=== PATIENT | male | born 1950 ===

== ENCOUNTER 2019-03-10 09:31 | Emergency (ER) | payer MEDICARE, OTHER ==
[~2019-03-10] VITALS: Ht 165.1 cm; Wt 62.1 kg
[2019-03-10 09:54] LABS: HEMATOCRIT 50 % (40-54); HEMOGLOBIN 16.4 G/DL (13.3-17.7); MEAN CORPUSCULAR HEMOGLOBIN 29 PG (25-34); WHITE BLOOD COUNT 6.6 10^3/uL (4.3-11.0)
[2019-03-10 09:55] LABS: BASOPHILS % (AUTO) 1 % (0-10); EOSINOPHILS # (AUTO) 0.1 10^3/uL (0.0-0.3); EOSINOPHILS % (AUTO) 2 % (0-10); LYMPHOCYTES # (AUTO) 1.8 X 10^3 (1.0-4.0); LYMPHOCYTES % (AUTO) 27 % (12-44); MEAN CORPUSCULAR HGB CONC 33 G/DL (32-36); MEAN CORPUSCULAR VOLUME 88 FL (80-99); MEAN PLATELET VOLUME 9.4 FL (7.4-10.4); MONOCYTES # (AUTO) 0.3 X 10^3 (0.0-1.0); MONOCYTES % (AUTO) 9 % (0-12); NEUTROPHILS % (AUTO) 61 % (42-75); PLATELET COUNT 342 10^3/uL (130-400); RED CELL DISTRIBUTION WIDTH 13.3 % (10.0-14.5)
[2019-03-10] MEDS: ASPIRIN 81 MG CHEW (CHILDREN'S ASA) PO ONE (09:58)
--- NOTE | 2019-03-10 10:01 | ED Chest Pain ---
General Chief Complaint: Chest Pain Stated Complaint: CHEST PAIN Source: patient Exam Limitations: no limitations History of Present Illness Date Seen by Provider: Mar 10, 2019 Time Seen by Provider: 09:40 Initial Comments The patient is a very pleasant 68-year-old male who presents for evaluation of chest pain and shortness of breath over the last 3-4 days. He states that it is bothering him intermittently. On Thursday he went to his doctor's office for some shortness of breath and had an EKG performed which showed a slightly irregular heartbeat but nothing else unusual. Reportedly takes medication for hyperlipidemia but denies any other significant past medical history. Currently he is having mild left-sided chest discomfort. It is not associated with movement or deep breaths. He denies nausea or vomiting, diaphoresis, abdominal or back pain, or syncope. He does report some palpitations over the last 4 or 5 days. 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 NTG SL FOOD PRODUCTION MACHINE OPERATOR: No Allergies and Home Medications Allergies Coded Allergies: No Known Drug Allergies (Unverified , 12/08/14) Patient Home Medication List Home Medication List Reviewed: Yes Review of Systems Review of Systems Constitutional: dizziness EENTM: No Symptoms Reported Respiratory: Shortness of Air Cardiovascular: Chest Pain, Palpitations Gastrointestinal: No Symptoms Reported Genitourinary: No Symptoms Reported Musculoskeletal: no symptoms reported Skin: no symptoms reported Psychiatric/Neurological: No Symptoms Reported Endocrine: No Symptoms Reported Hematologic/Lymphatic: No Symptoms Reported All Other Systems Reviewed Negative Unless Noted: Yes Past Lhkjxqu-Oxjssu-Yczcka Hx Past Med/Social Hx: Reviewed Nursing Past Med/Soc Hx Physical Exam Vital Signs Vital Signs - First Documented 03/10/19 09:50 Temp 97.8 Pulse 97 Resp 15 B/P (MAP) 135/105 (115) Pulse Ox 99 Capillary Refill : Height, Weight, BMI Height: 5'5.00" Weight: 145lbs. oz. 65.738292tq; BMI Method: General Appearance: No Apparent Distress, WD/WN HEENT: PERRL/EOMI, Pharynx Normal Neck: Full Range of Motion, Normal Inspection Respiratory: Chest Non Tender, Lungs Clear, Normal Breath Sounds, No Accessory Muscle Use, No Respiratory Distress Cardiovascular: Regular Rate, Rhythm, No Edema, Normal Peripheral Pulses Gastrointestinal: Normal Bowel Sounds, Non Tender, Soft Extremity: Normal Capillary Refill, Normal Inspection, Non Tender Neurologic/Psychiatric: Alert, Oriented x3, No Motor/Sensory Deficits, Normal Mood/Affect, kitchen manager II-XII Norm as Tested Skin: Normal Color, Warm/Dry Progress/Results/Core Measures Results/Orders Lab Results Laboratory Tests Test 03/10/19 09:41 03/10/19 13:00 Range/Units White Blood Count 6.6 4.3-11.0 10^3/uL Red Blood Count 5.66 4.35-5.85 10^6/uL Hemoglobin 16.4 13.3-17.7 G/DL Hematocrit 50 40-54 % Mean Corpuscular Volume 88 80-99 FL Mean Corpuscular Hemoglobin 29 25-34 PG Mean Corpuscular Hemoglobin Concent 33 32-36 G/DL Red Cell Distribution Width 13.3 10.0-14.5 % Platelet Count 342 130-400 10^3/uL Mean Platelet Volume 9.4 7.4-10.4 FL Neutrophils (%) (Auto) 61 42-75 % Lymphocytes (%) (Auto) 27 12-44 % Monocytes (%) (Auto) 9 0-12 % Eosinophils (%) (Auto) 2 0-10 % Basophils (%) (Auto) 1 0-10 % Neutrophils # (Auto) 4.0 1.8-7.8 X 10^3 Lymphocytes # (Auto) 1.8 1.0-4.0 X 10^3 Monocytes # (Auto) 0.3 0.0-1.0 X 10^3 Eosinophils # (Auto) 0.1 0.0-0.3 10^3/uL Basophils # (Auto) 0.0 0.0-0.1 10^3/uL D-Dimer 0.28 0.00-0.49 UG/ML Sodium Level 143 135-145 MMOL/L Potassium Level 3.9 3.6-5.0 MMOL/L Chloride Level 103 98-107 MMOL/L Carbon Dioxide Level 26 21-32 MMOL/L Anion Gap 14 5-14 MMOL/L Blood Urea Nitrogen 25 H 7-18 MG/DL Creatinine 1.20 0.60-1.30 MG/DL Estimat Glomerular Filtration Rate > 60 BUN/Creatinine Ratio 21 Glucose Level 89 70-105 MG/DL Calcium Level 9.9 8.5-10.1 MG/DL Corrected Calcium 8.5-10.1 MG/DL Magnesium Level 2.3 1.6-2.4 MG/DL Total Bilirubin 0.6 0.1-1.0 MG/DL Aspartate Amino Transf (AST/SGOT) 24 5-34 U/L Alanine Aminotransferase (ALT/SGPT) 25 0-55 U/L Alkaline Phosphatase 92 40-136 U/L Troponin I < 0.30 < 0.30 <0.30 NG/ML Pro-B-Type Natriuretic Peptide 129.8 H <75.0 PG/ML Total Protein 8.2 6.4-8.2 GM/DL Albumin 5.0 H 3.2-4.5 GM/DL My Orders Orders - FRANK MCKEON DO Cbc With Automated Diff (03/10/19 09:37) Magnesium (03/10/19 09:37) Chest 1 View Ap/Pa Only (03/10/19 09:37) Ekg Tracing (03/10/19 09:37) Comprehensive Metabolic Panel (03/10/19 09:37) O2 (03/10/19 09:37) Monitor-Rhythm Ecg Trace Only (03/10/19 09:37) Ed Iv/Invasive Line Start (03/10/19 09:37) Creatine Kinase Mb (03/10/19 09:37) Troponin I (03/10/19 09:37) Probnp Fs (03/10/19 09:37) Aspirin Chewable Tablet (Baby Aspirin Ch (03/10/19 09:45) Fibrin Degradation Products (03/10/19 09:45) Troponin I (03/10/19 12:30) Medications Given in ED Current Medications Medications Dose Ordered Sig/Dayna Route Start Time Stop Time Status Last Admin Dose Admin Aspirin 324 mg ONCE ONCE PO 03/10/19 09:45 03/10/19 09:48 DC 03/10/19 09:58 324 MG Vital Signs/I&O 03/10/19 09:50 Temp 97.8 Pulse 97 Resp 15 B/P (MAP) 135/105 (115) Pulse Ox 99 Progress Progress Note : Progress Note @1355 - patient updated on lab and imaging results. He has no additional complaints, states"I feel great". The patient has an occasionally irregular rhythm but I see P waves and do not see any sign of atrial fibrillation. Strongly advised the patient to follow up with his PCP and recommended a stress test. The patient expresses understanding and agreement and is stable for discharge. Workup today fails to reveal any emergent pathology. EKG : Comment Sinus tachycardia, rate of 102, normal axis, no acute ischemic findings noted, no STEMI, reviewed and interpreted by myself Diagnostic Imaging Comments [facility], [place] NAME: KANDI BRYAN [facility] REC#: [id number] PT STATUS: REG ER : 1950 PHYSICIAN: FRANK MCKEON DO ADMIT DATE: 03/10/19/ER FS Draft Date of Exam:03/10/19 CHEST 1 VIEW AP/PA ONLY INDICATION: Pain. COMPARISON: None available. TECHNIQUE: Single frontal radiograph of the chest dated 03/10/2019. FINDINGS: The cardiac silhouette and pulmonary vasculature are within normal limits. The lungs are clear without pleural effusion. No pneumothorax. No acute osseous abnormality. IMPRESSION: No acute cardiopulmonary abnormality. Dictated on workstation # [id number] Dict: 03/10/19 0959 Trans: 03/10/19 1003 [id number] Interpreted by: NEGRITA CALDERON MD Electronically signed by: Departure Impression Primary Impression: Chest pain Disposition: 01 HOME, SELF-CARE Condition: Stable Departure-Patient Inst. Decision time for Depature: 13:56 Referrals: SHANTEL DIAZ MD (PCP/Family) Primary Care Physician Patient Instructions: Chest Pain That Is Not Caused by the Heart (DC), Chest P ain Add. Discharge Instructions: Follow-up with your doctor in the next 1-2 days. It is advisable to have a stress test in the very near future. Return to the emergency department immediately for new or worsening symptoms. FRANK MCKEON DO Mar 10, 2019 10:01
[2019-03-10 10:24] LABS: ALANINE AMINOTRANSFERASE 25 U/L (0-55); ALKALINE PHOSPHATASE 92 U/L (40-136); BILIRUBIN,TOTAL 0.6 MG/DL (0.1-1.0); BUN/CREATININE RATIO 21; CALCIUM 9.9 MG/DL (8.5-10.1); CARBON DIOXIDE 26 MMOL/L (21-32); CHLORIDE 103 MMOL/L (98-107); GFR ESTIMATED > 60; GLUCOSE 89 MG/DL (70-105); MAGNESIUM 2.3 MG/DL (1.6-2.4); POTASSIUM 3.9 MMOL/L (3.6-5.0); SODIUM 143 MMOL/L (135-145)
[2019-03-10 10:25] LABS: TOTAL PROTEIN 8.2 GM/DL (6.4-8.2)
[2019-03-10 14:08] VITALS: BP 132/100
[2019-03-10 14:58] LABS: CREATINE KINASE MB 0.8 NG/ML (<6.6)
== END 2019-03-10 14:10 | disposition home or self-care (01) ==
LOC: EDUNIT# 09:31 → ER FS 09:35
DX: R07.9 Chest pain, unspecified (principal); E78.5 Hyperlipidemia, unspecified
CPT/HCPCS: 36415; 71045; 80053; 82553; 83735; 83880; 84484; 85025; 85379; 93005; 93041

== ENCOUNTER → 2021-01-07 | Outpatient (CLI) | payer MEDICARE ==
[~2021-01-07] MED LIST: CATHETER FLUSH 10 ML SYR IV PRN; HOLD METFORMIN - RECEIVED CONTRAST 20 ML VIAL IV SCH; IOHEXOL 350 MG/ML 100 ML (OMNIPAQUE 350) VIAL IV ONE; NS 100 ML (IVPB) BAG IV ONE
[2021-01-07 08:08] LABS: BUN/CREATININE RATIO 15; CREATININE SERUM 1.15 MG/DL (0.60-1.30); GFR ESTIMATED > 60
--- NOTE | 2021-01-07 08:57 | Diagnostic Imaging Report ---
PROCEDURE: CT head with and without contrast. TECHNIQUE: Multiple contiguous axial images were obtained through the brain before and after the administration of intravenous contrast. Auto Exposure Controls were utilized during the CT exam to meet ALARA standards for radiation dose reduction. INDICATION: Periauricular cyst. COMPARISON: None. FINDINGS: The ventricles and cortical sulci are normal in size and contour. Post contrast images show no abnormal enhancement There is no midline shift or mass-effect. No acute intra-axial hemorrhage is seen. There are no abnormal areas of increased or decreased density to suggest acute hemorrhage or edema. No extra-axial masses or collections are present. The bony calvarium is intact. The visualized paranasal sinuses are unremarkable. The mastoid air cells are clear. Evaluation of the soft tissue structures demonstrates a focal area of subcutaneous fatty prominence posterior to the right ear. The area in question measures 1 x 1.6 cm. Post contrast images show minimal stranding without significant soft tissue component. IMPRESSION: 1. No acute intracranial abnormality. No CT evidence of mass, acute infarct or intracranial hemorrhage. 2. Focal area of subcutaneous fatty prominence posterior to the right ear. 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 If there is clinical history of recent significant growth, excisional biopsy is recommended to exclude sarcoma. Dictated by: Dictated on workstation # [id number]
== END ==
LOC: LAB 07:21
PROVIDERS: ATTEND Otolaryngology Otolaryngology/Facial Plastic Surgery
DX: Q18.1 Preauricular sinus and cyst (principal)
CPT/HCPCS: 36415; 70470; 82565; 84520

== ENCOUNTER → 2021-10-22 | Outpatient (CLI) | payer MEDICARE ==
--- NOTE | 2021-10-22 17:42 | Diagnostic Imaging Report ---
MRI RT LOWER EXT JOINT W/O TECHNIQUE: Multiplanar, multisequence MR imaging of the right knee was performed without contrast. COMPARISON: None available. INDICATION: Right knee pain after twisting injury FINDINGS: MENISCI Medial meniscus: Normal. Lateral meniscus: Normal. LIGAMENTS ACL: Intact. PCL: Intact. MCL: The origin and insertion of the MCL remain intact. In its mid aspect, it has some increased T2 signal and surrounding T2 hyperintense signal indicative of intermediate grade sprain/partial thickness tear. LCL: The lateral collateral ligamentous complex is intact. EXTENSOR MECHANISM The extensor mechanism is intact. CARTILAGE Medial compartment: Medial compartment articular cartilage is well preserved without focal high-grade chondromalacia. Lateral compartment: The lateral compartment articular cartilage is preserved without high-grade chondromalacia. Patellofemoral compartment: The patellofemoral articular cartilage is well preserved without high-grade chondromalacia. BONE No fracture, stress fracture or osteonecrosis. SOFT TISSUE No knee effusion or Rajan's cyst. IMPRESSION: 1. Intermediate grade sprain/partial thickness tear of the MCL. 2. No meniscal tear. 3. Articular cartilage is normal. Dictated by: Dictated on workstation # [id number]
== END ==
LOC: RAD 13:15
PROVIDERS: ATTEND Nurse Practitioner Family
DX: S89.81XA Other specified injuries of right lower leg, initial encounter (principal); X58.XXXA Exposure to other specified factors, initial encounter
CPT/HCPCS: 73721

== ENCOUNTER → 2022-10-22 | Outpatient (CLI) | payer MEDICARE ==
--- NOTE | 2022-10-22 09:58 | Diagnostic Imaging Report ---
PROCEDURE: MRI lumbar spine. TECHNIQUE: Multiplanar, multisequence MRI of the lumbar spine was performed without contrast. INDICATION: Lower back pain. COMPARISON: None FINDINGS: For the purposes of this exam, last well-formed disc space is denoted L5-S1 level. Evaluation of static alignment shows slight grade 1 retrolisthesis at L5-S1. There is no evidence of jumped facets. Vertebral body heights are maintained. There is no acute fracture. Marrow signal demonstrates Modic type II changes involving the adjacent endplates at L4-L5. There is also associated prominent intervertebral disc height loss with endplate sclerosis and osteophyte formation. Visualized portions of distal cord are unremarkable. Conus terminates at approximately the L1 level. No abnormal intrathecal filling defects are seen. Pre and paravertebral soft tissue structures are unremarkable. Axial images demonstrate the following: T12-L1 through L2-L3: There is no large disc bulge or focal protrusion and there is no significant spinal canal or neuroforaminal stenosis. L3-L4: There is broad-based posterior disc bulge and bilateral ligamentum flavum laxity and facet arthropathy. As a result, there is mild stenosis of the spinal canal and bilateral neural foramen. L4-L5: There is broad-based posterior disc osteophyte complex formation and bilateral ligamentum flavum laxity and facet arthropathy. As a result, there is mild narrowing of the spinal canal and left neuroforamen. There is also moderate stenosis on the right. L5-S1: There is asymmetric left lateral endplate disc osteophyte complex formation and bilateral facet arthropathy. As a result, there is moderate stenosis of the left neuroforamen. Spinal canal and right neuroforamen are unremarkable. IMPRESSION: 1. Multilevel degenerative changes in the lumbar spine greatest at the L4-L5 level as above. 2. No acute fracture or dislocation. Dictated by: Dictated on workstation # [id number]
== END ==
LOC: RAD 08:54
PROVIDERS: ATTEND Student in an Organized Health Care Education/Training Program
DX: M47.816 Spondylosis without myelopathy or radiculopathy, lumbar region (principal); M47.817 Spondylosis without myelopathy or radiculopathy, lumbosacral region; M51.36 Other intervertebral disc degeneration, lumbar region
CPT/HCPCS: 72148

== ENCOUNTER → 2023-03-17 | Outpatient (CLI) | payer MEDICARE ==
--- NOTE | 2023-03-17 15:12 | Diagnostic Imaging Report ---
MRI LT LOWER EXT JOINT W/O TECHNIQUE: Multiplanar, multisequence MR imaging of the left knee was performed without contrast. COMPARISON: None available. INDICATION: Left knee pain. FINDINGS: MENISCI Medial meniscus: Complex tear in the posterior horn includes a incomplete radial free edge tear along with a horizontal cleavage tear. Lateral meniscus: Normal. LIGAMENTS ACL: Intact. PCL: Intact. MCL: Intact. LCL: The lateral collateral ligamentous complex is intact. EXTENSOR MECHANISM The extensor mechanism is intact. CARTILAGE Medial compartment: Low-grade partial-thickness chondral fibrillation and central weightbearing aspect of the medial compartment. Lateral compartment: The lateral compartment articular cartilage is preserved without high-grade chondromalacia. Patellofemoral compartment: The patellofemoral articular cartilage is well preserved without high-grade chondromalacia. BONE No fracture, stress fracture or osteonecrosis. SOFT TISSUE No knee joint effusion. A large Rajan's cyst measures approximately 6 x 2 x 3 cm. IMPRESSION: 1. Complex tear in the posterior horn of the medial meniscus. 2. Large Rajan's cyst. 3. Mild degenerative chondral loss in the medial compartment. Dictated by: Dictated on workstation # [id number]
== END ==
LOC: RAD 13:48
PROVIDERS: ATTEND Nurse Practitioner
DX: S83.232A Complex tear of medial meniscus, current injury, left knee, initial encounter (principal); M71.22 Synovial cyst of popliteal space [Baker], left knee; M22.42 Chondromalacia patellae, left knee
CPT/HCPCS: 73721